=== PATIENT | male | born 1985 | race Caucasian/White ===

== ENCOUNTER 2023-11-06 09:21 | Emergency (ER) | payer MEDICAID ==
[~2023-11-06] VITALS: Ht 193 cm; Wt 90.7 kg
[2023-11-06 09:35] VITALS: BP 165/101; PULSE 65; RESP 18; TEMP 97; O2SAT 98
[2023-11-06] MEDS ORDERED: IBUPROFEN 600 MG TAB PO ONE (10:20)
== END 2023-11-06 11:44 | disposition home or self-care (01) ==
LOC: MED 09:21
DX: S80.251A Superficial foreign body, right knee, initial encounter (principal); S80.01XA Contusion of right knee, initial encounter; I10 Essential (primary) hypertension; W17.2XXA Fall into hole, initial encounter; Y92.89 Other specified places as the place of occurrence of the external cause; Y93.89 Activity, other specified; Y99.8 Other external cause status
CPT/HCPCS: 73562; 99284